=== PATIENT | male | born 1945 | race Caucasian/White ===

== ENCOUNTER → 2017-02-26 | Outpatient (CLI) | payer MEDICARE ==
[~2017-02-26] MED LIST: ALBU18HF IH; ALBU2.5V14 IH; ASPI-482 PO; CARV6.25 PO; CHOL400C PO; FENO145T2 PO; FURO-69 PO; HYDR25TA9 PO; ISOS120T PO; LOSA100T6 PO; METF10002 PO; NITR0.4T SL; OMEG300C PO; OMEP40CA5 PO; OSCAL; PRAM0.255 PO; PRAV80TA2 PO; RANO500T2 PO; SILO8CAP PO; VITA1CAP PO; WARF5TAB7 PO
[2017-02-26 10:44] LABS: ALBUMIN 3.9 g/dL (3.4-5.0); CALCIUM 8.8 mg/dL (8.5-10.1); CREATININE 1.1 mg/dL (0.7-1.3); POTASSIUM 3.9 mmol/L (3.5-5.1); TOTAL BILIRUBIN 0.8 mg/dL (0.2-1.0); TOTAL PROTEIN 7.9 g/dL (6.4-8.2)
[2017-02-26 10:51] LABS: GFR 65.8
== END | disposition home or self-care (01) ==
LOC: LAB 10:00
PROVIDERS: ATTEND Nurse Practitioner
DX: E78.5 Hyperlipidemia, unspecified (principal)
CPT/HCPCS: 36415; 80053; 80061

== ENCOUNTER → 2017-09-26 | Outpatient (CLI) | payer MEDICARE ==
[~2017-09-26] MED LIST changes: -FENO145T2 PO; +FENO145T30 PO; -METF10002 PO; +METF10003 PO; +WARF-31 PO; -WARF5TAB7 PO
[2017-09-26 11:27] LABS: ALBUMIN 3.7 g/dL (3.4-5.0); ALBUMIN/GLOBULIN RATIO 0.9 (1.0-1.7); CALCIUM 9.1 mg/dL (8.5-10.1); CREATININE 1.1 mg/dL (0.7-1.3); GFR 65.6; TOTAL PROTEIN 7.6 g/dL (6.4-8.2)
== END | disposition home or self-care (01) ==
LOC: LAB 10:40
PROVIDERS: ATTEND Nurse Practitioner
DX: E78.5 Hyperlipidemia, unspecified (principal)
CPT/HCPCS: 36415; 80053; 80061

== ENCOUNTER → 2021-02-21 | Outpatient (CLI) | payer MEDICARE ==
[~2021-02-21] MED LIST changes: -ALBU18HF IH; +ALBU2.5V8 IH; +FENO145T3 PO; -FENO145T30 PO; +HYDR-2145 PO; -HYDR25TA9 PO; +LOSA100T14 PO; -LOSA100T6 PO; -METF10003 PO; +METF10007 PO; -NITR0.4T SL; +NITR0.4T24 SL; -OMEP40CA5 PO; +OMEP40CA7 PO; -SILO8CAP PO; +SILO8CAP2 PO
[2021-02-21 12:45] LABS: MAGNESIUM 2.1 mg/dL (1.8-2.4); POTASSIUM 4.4 mmol/L (3.5-5.1)
== END ==
LOC: LAB 11:27
PROVIDERS: ATTEND Internal Medicine Cardiovascular Disease
DX: I47.2 Ventricular tachycardia (principal)
CPT/HCPCS: 36415; 83735; 84132